=== PATIENT | female | born 1985 | race Two or more races ===

== ENCOUNTER 2017-06-28 18:22 | Emergency (ER) | payer OTHER ==
[~2017-06-28] VITALS: Ht 167.6 cm; Wt 72.6 kg
[2017-06-28 19:20] VITALS: BP 112/80
[2017-06-28] MEDS ORDERED: Lidocaine 2% Visc 15ml soln ORAL ONE (20:15)
[2017-06-28] MEDS ORDERED: Dicyclomine HCl 10mg/5ml oral soln ORAL ONE (20:15)
[2017-06-28 21:00] VITALS: BP 109/69
--- NOTE | 2017-06-29 15:00 | Emergency Room Report ---
History of Present Illness General Chief Complaint: Alcohol Intoxication Source: Patient Present Illness HPI 31YOF BIBEMS for public intoxication Patient endorses "drinking every day for years" Had 4 pints of beer today Denies drug use Denies other medical problems HPI otherwise limited by intoxication Also c/o stomach pain, epigastric area, started after drinking Allergies: Coded Allergies: UNABLE TO ASSESS (Unverified , 06/28/17) Patient History Past Medical History: none Past Surgical History: none Pertinent Family History: none Now: No Immunizations: UTD Reviewed Nursing Documentation: PMH: Agreed, PSxH: Agreed Nursing Documentation-PMH Past Medical History Deferred: Patient Unconscious Past Medical History: No Stated History Review of Systems All Other Systems: limited - by ETOH intoxication Physical Exam Vital Signs Date Time Temp Pulse Resp B/P (MAP) Pulse Ox O2 Delivery O2 Flow Rate FiO2 06/28/17 18:21 97.9 77 16 112/80 100 Room Air Sp02 EP Interpretation: reviewed, normal General Appearance: normal inspection, well appearing, no apparent distress, alert, GCS 15, non-toxic Head: normocephalic, atraumatic Eyes: bilateral eye PERRL, bilateral eye EOMI ENT: normal ENT inspection, hearing grossly normal, normal voice Neck: normal inspection, full range of motion, supple, no bony tend Respiratory: normal inspection, lungs clear, normal breath sounds, no respiratory distress, no retraction, no wheezing Cardiovascular #1: regular rate, rhythm, no edema Gastrointestinal: normal inspection, normal bowel sounds, non tender, soft, no guarding, no hernia Genitourinary: no CVA tenderness Musculoskeletal: normal inspection, back normal, normal range of motion, Mykel' s Sign negative Neurologic: normal inspection, alert, responsive, speech normal Psychiatric: normal inspection, judgement/insight normal, mood/affect normal Skin: normal inspection, normal color, no rash Medical Decision Making Diagnostic Impression: Primary Impression: Acute alcoholic intoxication Qualified Codes: F10.929 - Alcohol use, unspecified with intoxication, unspecified Additional Impression: Gastritis Qualified Codes: K29.20 - Alcoholic gastritis without bleeding ER Course Acute ETOH intoxication VSS. Afebrile. Epigastric abd pain likely gastritis from chronic ETOH abuse Improved with GI cocktail, pepcid Non-focal abdomen on serial exam Was observed in ED for multiple hours then DCed when sober Ambulating with steady gait, tolerating PO Knows address/has means to get home/wants to leave [place] home Last Vital Signs Date Time Temp Pulse Resp B/P (MAP) Pulse Ox O2 Delivery O2 Flow Rate FiO2 06/28/17 21:00 97.9 88 16 109/69 100 Room Air Status: improved Disposition: HOME, SELF-CARE Condition: Improved Referrals: [facility] (PCP) Patient Instructions: Gastritis, Adult, [id number] BALAJI ANTUNEZ M.D. Jun 29, 2017 15:00
== END 2017-06-28 21:30 | disposition home or self-care (01) ==
LOC: EDBD 18:22 → EMR 20:05
DX: F10.129 Alcohol abuse with intoxication, unspecified (principal); K29.70 Gastritis, unspecified, without bleeding
CPT/HCPCS: 99284